=== PATIENT | male | born 1965 | race Caucasian/White ===

== ENCOUNTER 2020-09-01 10:46 | Emergency (ER) | payer MEDICAID ==
[2020-09-01] MEDS ORDERED: Bacitracin Oint 1 GM U/D Packet TOP ONE (11:07)
--- NOTE | 2020-09-01 11:08 | EDM.PDOC ---
ED HPI GENERAL MEDICAL PROBLEM - General Chief Complaint: Laceration Stated Complaint: CUT BY SAW Time Seen by Provider: 09/01/20 11:07 Source of Information: Reports: Patient, Family History Limitations: Reports: No Limitations - History of Present Illness INITIAL COMMENTS - FREE TEXT/NARRATIVE: pt had a small saw slip nd he ended up with a laceration in the left facial area. Onset: Today, Sudden Duration: Hour(s): Location: Reports: Face Associated Symptoms: Reports: No Other Symptoms - Related Data Allergies Allergy/AdvReac Type Severity Reaction Status Date / Time No Known Allergies Allergy Verified 03/29/14 10:02 Home Meds: Home Meds NK [No Known Home Meds] 09/01/20 [History] ED ROS GENERAL - Review of Systems Review Of Systems: See Below Constitutional: Reports: No Symptoms HEENT: Reports: No Symptoms, Other (laceration on the rt side of the face) Respiratory: Reports: No Symptoms Cardiovascular: Reports: No Symptoms Endocrine: Reports: No Symptoms GI/Abdominal: Reports: No Symptoms : Reports: No Symptoms Musculoskeletal: Reports: No Symptoms Skin: Reports: No Symptoms ED EXAM, SKIN/RASH Exam: See Below Text/Narrative:: pt has a 1 inch laceration on the left side of the face. This deep to the subq. Exam Limited By: No Limitations General Appearance: Alert, No Apparent Distress, Anxious Ears: Normal TMs Nose: Normal Inspection Throat/Mouth: Normal Inspection Head: Other (pt has a 1 inch laceration on the left side of his face. ) Neck: Normal Inspection Respiratory/Chest: No Respiratory Distress Course - Vital Signs Last Recorded V/S: Last Vital Signs Temp 36.6 C 09/01/20 11:12 Pulse 105 H 09/01/20 11:12 Resp 17 09/01/20 11:12 BP 135/91 H 09/01/20 11:12 Pulse Ox 95 09/01/20 11:12 - Orders/Labs/Meds Meds: Medications Discontinued Medications Generic Name Dose Route Start Last Admin Trade Name Freq PRN Reason Stop Dose Admin Bacitracin 1 dose 09/01/20 11:07 09/01/20 11:45 Bacitracin Oint 1 Gm U/D Packet TOP 09/01/20 11:08 1 dose ONETIME ONE Administration Lidocaine HCl 5 ml 09/01/20 11:06 09/01/20 11:45 Lidocaine 1% 5 Ml Sdv INJECT 09/01/20 11:07 5 ml ONETIME ONE Administration - Re-Assessments/Exams Free Text/Narrative Re-Assessment/Exam: 09/01/20 12:01 area was cleansed well and infiltrated with lidocaine. The wound was brought together with 5-0 chromic and 6-0 prolene in a layered fashion Bacatracin was applied. Departure - Departure Time of Disposition: 11:57 Disposition: Home, Self-Care 01 Condition: Fair Clinical Impression: Facial laceration - Discharge Information Referrals: Jaguar Cooper MD [Primary Care Provider] - Forms: ED Department Discharge Care Plan Goals: no further ointments, keep dry, suture removal in 6 days may return here or to the clinic. Sepsis Event Note (ED) - Focused Exam Vital Signs: Vital Signs Temp Pulse Resp BP Pulse Ox 09/01/20 11:12 36.6 C 105 H 17 135/91 H 95 09/01/20 11:09 36.6 C 105 H 17 135/91 H 95
== END 2020-09-01 12:18 | disposition home or self-care (01) ==
LOC: JP.ED 10:46
DX: S01.81XA Laceration without foreign body of other part of head, initial encounter (principal); W27.0XXA Contact with workbench tool, initial encounter
CPT/HCPCS: 12011; 99282-25